=== PATIENT | female | born 1965 | race Caucasian/White ===

== ENCOUNTER 2020-09-13 09:00 | Outpatient (CLI) | payer OTHER ==
[~2020-09-13 09:00] MED LIST: AMBIEN10 MG PO; CIPROFLOXACIN750 MG PO; CLONAZEPAM1 MG PO; COREG CR10 MG PO; DOCUSATE SODIU100 MG PO; FIORICET 50-301 EACH PO; HYZAAR 100-251 UDTAB PO; LOPID PO; METFORMIN HCL500 MG PO; NEURONTIN PO; PERCOCET 5/321 UDTAB PO; PERCOCET 5/3251 TAB PO; WELLBUTRIN75 MG PO; ZANAFLEX4 MG PO; ZOCOR40 MG PO
== END 2020-09-13 09:14 | disposition home or self-care (01) ==
LOC: MAMO-SONO 09:00
PROVIDERS: ATTEND Internal Medicine Cardiovascular Disease
DX: M12.9 Arthropathy, unspecified (principal); M11.9 Crystal arthropathy, unspecified; M65.872 Other synovitis and tenosynovitis, left ankle and foot; M65.871 Other synovitis and tenosynovitis, right ankle and foot